=== PATIENT | female | born 1990 | race Two or more races ===

== ENCOUNTER 2022-01-10 08:21 | Emergency (ER) | payer OTHER ==
[~2022-01-10] VITALS: Ht 162.6 cm; Wt 69.4 kg
[2022-01-10] MEDS ORDERED: PRENATAL + DHA1 EAC1 PO (08:32)
== END 2022-01-10 11:24 | disposition home or self-care (01) ==
LOC: ER 08:21
DX: O98.513 Other viral diseases complicating pregnancy, third trimester (principal); U07.1 COVID-19; Z3A.33 33 weeks gestation of pregnancy

== ENCOUNTER 2022-02-16 09:45 | Inpatient (IN) | payer OTHER ==
[~2022-02-16] VITALS: Ht 162.6 cm; Wt 3.2 kg
[~2022-02-16 09:45] MED LIST: PRENATAL + DHA1 EAC1 PO
== END 2022-02-24 15:21 | disposition home or self-care (01) | DRG 788 ==
LOC: SURG 02-20 09:45 → O/R 02-21 06:09 → OB/GYN 02-21 06:09
PROVIDERS: ADMIT Obstetrics & Gynecology; ATTEND Obstetrics & Gynecology
PROC: 4A1HXCZ Monitoring of Products of Conception, Cardiac Rate, External Approach (ICD-10-PCS; 2022-02-21)
PROC: 10D00Z1 Extraction of Products of Conception, Low, Open Approach (ICD-10-PCS; principal; 2022-02-21 10:45)
DX: O34.211 Maternal care for low transverse scar from previous cesarean delivery (principal); Z3A.39 39 weeks gestation of pregnancy; Z37.0 Single live birth; Z20.822 Contact with and (suspected) exposure to COVID-19